=== PATIENT | female | born 1930 | race Caucasian/White ===

== ENCOUNTER 2017-03-16 14:24 | Inpatient (IN) | payer MEDICARE, OTHER ==
--- NOTE | ~2017-03-16 | IDS ---
Interim Discharge Summary [facility] [address] [place]. [address] NAME: SUSAN MAC : 30 STATUS : ADM IN PAT#: [id number] AGE: 87 ADM/REG DATE : 03/16/17 MR#: [id number] REPORT SERV DATE: 03/20/17 DICTATED BY: DATE: REPORT STATUS : Draft TRANSCRIBED BY: MODL DATE: 03/19/17 ADMISSION DATE: 03/16/2017 DISCHARGE DATE: INTERIM DISCHARGE DIAGNOSES: 1. Acute hypoxic respiratory failure, present on arrival. 2. Urinary tract infection due to chronic Clement present on arrival. 3. Advanced Parkinson disease. 4. Diabetes mellitus type 2. 5. Debility. 6. History of cerebrovascular accident in 2013. 7. Aortic sclerosis. CONSULTING PHYSICIANS: None. IMAGIN. Portable chest x-ray demonstrated left basilar atelectasis, consolidation with minimal right basilar atelectasis, trace left pleural fluid. 2. CTA of the chest demonstrated no evidence of pulmonary embolism. For full H and P, please refer to Dr. Prakash Singh's dictation on 03/16/2017. 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 She has had progressive worsening of her Parkinson disease as well as acute onset of confusion last Monday. She has had multiple UTIs and now has a chronic Clement catheter. She was initially admitted thinking that she had acute delirium related to urinary tract infection; however, urine culture only demonstrates colonization with Evelia. Her acute hypoxic respiratory failure has not really improved since admission. Her CTA was negative for pulmonary embolism. Questioning whether the patient has some silent aspiration, I ordered a speech therapy evaluation for swallow study. This has not been performed yet. Considering the patient has a history of a CVA, I am also obtaining an MRI of the brain, which also has not been done. Due to the possibility of aspiration pneumonitis, continuing Zosyn IV; however, the patient passes her swallow evaluation and might be prudent to discontinue the Zosyn considering the patient has been afebrile and only has mild leukocytosis of 11,000. I spoke with the patient's niece today, Ms. Susan Ho, who lives in [place]. Concerning the patient's condition, she reported to me that the patient was a heavy smoker from the age of 14 well into her 70s. She does have a history of COPD, possibly this hypoxic respiratory failure is related to a progression of her COPD and not an acute infection. Diabetes mellitus has been under control; however, this morning, her blood glucose was 43. After talking to the patient and her caregiver, the patient has not been eating very well since admission to the hospital. She is on glyburide. I am going to cut the dose in half, and I encouraged the patient to eat food from outside the hospital if needed. I also spoke to the patient's power of staff attorney concerning her code status. The patient is a DNR/DNI. Hopefully, we will have some answers after the MRI is performed and speech therapy evaluation is completed. Possibly, this is again a progression of the patient's COPD. She may require home oxygen. She may have had another stroke. We will see what the MRI results show. After discharge, Interim Discharge Summary [address] [place]. [address] NAME: SUSAN MAC : 30 STATUS : ADM IN [facility]#: [id number] AGE: 87 ADM/REG DATE : 03/16/17 MR#: [id number] REPORT SERV DATE: 03/20/17 DICTATED BY: DATE: REPORT STATUS : Draft TRANSCRIBED BY: AG DATE: 03/19/17 the patient will return home. She has 24-hour caregivers. She has 7 caregivers that her family has hired to take care of her around the clock. She also has a neighbor, Ms. Carolina Sandoval, who coordinates all of her care here in [place], and she is a contact for updates in the patient's condition. Her number is on the face sheet. JULIUS/SAADIAL Venancio Carmen NP / [id number] CC: MD Prakash Orta M.D.
--- NOTE | ~2017-03-16 | DS ---
Discharge Summary [facility] [address] [place]. [address] NAME: RISHABH MAC : 30 STATUS : DIS IN PAT#: [id number] AGE: 87 ADM/REG DATE : 03/16/17 MR#: [id number] REPORT SERV DATE: 03/24/17 DICTATED BY: KRUNAL DYE DATE: 03/23/17 REPORT STATUS : Draft TRANSCRIBED BY: MODL DATE: 03/23/17 ADMISSION DATE: 03/16/2017 DISCHARGE DATE: 03/23/2017 REASON FOR ADMISSION: This is an 87-year-old female, who came in with hypoxemia in the emergency room. She was found to have an O2 saturation of 80% in room air. They would perform a CTA of the chest, which showed no evidence of pulmonary embolism, however, mild basilar atelectasis was seen as well as findings compatible with COPD. DISCHARGE DIAGNOSES: 1. Hypoxemic respiratory failure secondary to atelectasis and possible aspiration event. 2. Parkinson's. 3. Status post delirium. 4. Diabetes. 5. Status post the yeast urinary tract infection. 6. Dysphagia. HOSPITAL COURSE: Please see admission H and P from Prakash Singh on 03/17/2017 as well as the interim discharge summary from Tristan Carmen on 03/20/2017 for full details on admission and hospital stay. I picked up the patient on 03/21. 1. Hypoxemic respiratory failure. The patient was admitted, placed on oxygen as well as respiratory treatments, EzPAP. She was able to be weaned down on her oxygen to 1 L before discharge. Images did show atelectasis and that resolved over hospital stay, however, there was also a concern for possible aspiration event, so a swallow study was performed, which did show aspiration. Speech Therapy recommended pureed diet with nectar thick liquids and esophageal stimulation treatment at rehab and repeat modified barium swallow study in six to eight weeks. The patient did have delirium on admission as well, that has resolved. The patient was given five days of IV Zosyn during hospital stay to cover for possible aspiration pneumonitis. 2. Parkinson's. The patient was started on Sinemet here at the hospital and her symptoms are improved on Sinemet. 3. During her delirium, there was concern because she had a history of a stroke to go ahead and do an MRI of the brain, which would show moderate to marked general atrophy and a moderate amount of old deep white matter ischemic changes. No acute bleed, infarction, or hydrocephalus suggested. DISCHARGE CONDITION: Stable. DISCHARGE MEDICATIONS: 1. Glyburide 2.5 mg p.o. daily. 2. Azilect 1 mg p.o. daily. 3. Plavix 75 mg p.o. daily. 4. Hiprex 1 g p.o. b.i.d. 5. Colace 100 mg p.o. daily. 6. Pravastatin 20 mg p.o. at bedtime. 7. Sinemet 25/100 mg p.o. one tablet b.i.d. Discharge Summary [address] [address] NAME: RISHABH MAC : 30 STATUS : DIS IN PAT#: [id number] AGE: 87 ADM/REG DATE : 03/16/17 MR#: [id number] REPORT SERV DATE: 03/24/17 DICTATED BY: KRUNAL DYE DATE: 03/23/17 REPORT STATUS : Draft TRANSCRIBED BY: AG DATE: 03/23/17 8. Mirapex 4.5 mg p.o. at bedtime. 9. Nebivolol 2.5 mg p.o. daily. DISCHARGE PLAN: The patient is discharged to retirement rehab and follow up with primary care after rehab. JOCE/AG Krunal Dye APN / [phone] CC: Christal Johnson M.D.
--- NOTE | ~2017-03-16 | IDS ---
Interim Discharge Summary [facility] [address] [place]. [address] NAME: RISHABH MAC : 30 STATUS : ADM IN [facility]#: [id number] AGE: 87 ADM/REG DATE : 03/16/17 MR#: [id number] REPORT SERV DATE: 03/19/17 DICTATED BY: DATE: REPORT STATUS : Draft TRANSCRIBED BY: MODL DATE: 03/19/17 ADMISSION DATE: 03/16/2017 DISCHARGE DATE: INTERIM DISCHARGE DIAGNOSES: 1. Acute hypoxic respiratory failure, present on arrival. 2. Urinary tract infection due to chronic Clement present on arrival. 3. Advanced Parkinson disease. 4. Diabetes mellitus type 2. 5. Debility. 6. History of cerebrovascular accident in 2013. 7. Aortic sclerosis. CONSULTING PHYSICIANS: None. DICTATION ENDS HERE JULIUS/AG Venancio Carmen NP / [id number] CC: MD Prakash Orta M.D.
--- NOTE | ~2017-03-16 | HP ---
History And Physical [place] [id number] [place]. [address] NAME: RISHABH MAC : 30 STATUS : ADM IN [facility]#: [id number] AGE: 87 ADM/REG DATE : 03/16/17 MR#: [id number] REPORT SERV DATE: 03/17/17 DICTATED BY: NISHANT FISHMAN DATE: 03/16/17 REPORT STATUS : Draft TRANSCRIBED BY: MODBennie DATE: 03/16/17 DATE OF ADMISSION: 03/16/2017 REASON FOR ADMISSION: Hypoxemia. 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 She has caretakers around her. She has no living children or siblings except in [place]. The power of maintenance mechanic elevators lives there. The patient says that she has just gotten weaker. This is confirmed by her caregivers and next door neighbor, who agreed that she has had trouble walking, and it is difficult now to get out to her appointments. She has longstanding history of Parkinson disease, and she is followed by Dr. Krystina Novoa. She also sees Dr. Nishant Ha as her primary care physician. She has had frequent urinary tract infections, and Dr. Ha referred her to Dr. Emigdio Ferrara, who has placed a Clement catheter in the last six weeks. The observer states she has worsened since that time. She does have a large amount of pyuria. She was on suppressive Keflex and hippuric acid at home. She denies any fever or chills, though with this pyuria we are suspicious this may be urinary tract infection aggravating the Parkinson disease, causing increasing weakness and immobility. Incidentally in the emergency room, she was found to have an oxygen saturation of 80% on arrival. CTA of the chest showed no evidence of pulmonary embolism. However, mild basilar atelectasis left greater than right and upper lobe lucency compatible with COPD. She has a severe T4 compression fracture on the back likely due with retropulsion posteriorly causing mild canal stenosis and a chronic L1 fracture as well. [employer]airer states she is saddened because her best friend Teri Madrid the former publisher of the [employer] yesterday and she is mourning that as well. PAST MEDICAL HISTORY: She has had some dehydration, type 2 diabetes, recently blood sugar being elevated and hyperlipidemia. SOCIAL HISTORY: She quit smoking cigarettes about 19 years ago. She does not take any current alcohol. She has 24/7 caregivers and has had progressive Parkinson disease and the urinary retention likely secondary to the Parkinson disease as well. She does not take any alcohol. She never . She is related to football coaches as well probably at [employer] or [employer]. 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 She did not belong to the [employer] which was the cheondoism sponsoring [facility] and says she is not much of a cheondoism goer now. ALLERGIES: SULFA AND MULTIPLE POLLEN ALLERGIES. FAMILY HISTORY: She has a sister who is alive and well and a niece who actually is the power of-maintenance mechanic elevators for her but she is not able to describe any health problems associated with them History And Physical [address] [place]. [address] NAME: RISHABH MAC : 30 STATUS : ADM IN [facility]#: [id number] AGE: 87 ADM/REG DATE : 03/16/17 MR#: [id number] REPORT SERV DATE: 03/17/17 DICTATED BY: NISHANT FISHMAN DATE: 03/16/17 REPORT STATUS : Draft TRANSCRIBED BY: AG DATE: 03/16/17 in the past. REVIEW OF SYSTEMS: She denies chest pain. She denies shortness of breath. She denies coughing, has no obstructive sleep apnea. No swelling of lower extremities. She did have infiltration of the IV in her right arm at the time the contrast given for CTA and now has swelling of that arm but she has had no nausea, vomiting, no melena, hematemesis, fits, seizures, convulsions. She has just lost her strength and is very weak now. The remainder of review of systems is negative. PHYSICAL EXAMINATION: VITAL SIGNS: Her blood pressure was 119/45 with a heart rate of 74, respiratory rate 20, oxygen saturation initially 85% with arterial blood gas having been obtained at room air showing 7.49, 37, and 49 on room air. HEENT: EOMI. Sclerae clear. Conjunctivae pink. She has periorbital swelling. Pharynx is clear. Tongue midline and well papillated. NECK: No bruit without any JVD. CHEST: Clear to A and P. HEART: Regular S1, S2 without murmur, gallop, or click. BREASTS: Grossly without mass. ABDOMEN: Soft, nontender. Bowel sounds positive. EXTREMITIES: She has no edema. Distal pulses are palpable at dorsalis pedis and posterior tibial. NEUROLOGIC: She does have DTRs of the knees bilaterally. Not in the ankles. Sensory is grossly intact. She is able to move her hand. She has some stiffness in her hands. Tone is not increased. She does not have any cogwheel rigidity. Rapid alternating movements are very slowed. She does have bradykinesia and evidence of lethargy. LYMPHATICS: There is no adenopathy palpable. BREASTS: Without mass. SKIN: Multiple ecchymoses and large infusion of the right antecubital fossa at the site of the IV contrast infusion or infiltration. LABORATORY DATA: The arterial blood gas is as cited above. CTA as above. Portable chest x-ray shows left basilar atelectasis and consolidation with minimal right basilar atelectasis and left pleural effusion may be present. BNP was 134, her white count was 9.4, hemoglobin 11.4, hematocrit 35.7, platelets were 243,000, and her INR was 1.1. The chest pain profile showed troponin of 0.02, creatinine of 0.78, BUN 14, sodium 142, potassium 3.8. Glucose was 119. Magnesium 2.0. Urinalysis showed greater than 182 red cells, greater than 182 white cells, many white cell clumping, yeast budding, occasional bacteria, moderate mucus, moderate leukocyte esterase, and positive nitrite, pH was 5 with specific gravity 1.020 and protein 100 mg%. ASSESSMENT: History And Physical [address] [place]. [address] NAME: RISHABH MAC : 30 STATUS : ADM IN [facility]#: [id number] AGE: 87 ADM/REG DATE : 03/16/17 MR#: [id number] REPORT SERV DATE: 03/17/17 DICTATED BY: NISHANT FISHMAN DATE: 03/16/17 REPORT STATUS : Draft TRANSCRIBED BY: MODBennie DATE: 03/16/17 1. Hypoxemia. Chest x-ray shows atelectasis, I wonder about some hypoventilation. We will add EZPAP. Her oxygen saturation at home last week was 93%. 2. Chronic indwelling Clement catheter last six weeks, likely secondary to parkinsonian bladder with lack of emptying and urinary retention. 3. Urinary tract infection has been frequent throughout the past. Multiple other medications have been used. We will start with Zosyn and adjust from there. 4. Parkinson disease, rather advance probably made worse by urinary tract infection. 5. Diabetes type 2 with blood sugar being elevated. It is suspicious for urinary tract infection exacerbating this. 6. History of Plavix for stroke about two years ago. 7. Mobility worsening likely secondary to the urinary tract infection and Parkinson disease. She has been getting physical therapy twice a week without much improvement over the last six weeks. 8. 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 PLAN: To treat the urinary tract infection, get physical therapy to watch, EZPAP to help with the hypoxemia. I have discussed end of life issues with the patient in the event of cardiac arrest. She does not wish to be resuscitated, and we therefore entered DNR order for her. PETEY/AG Nishant Fishman M.D. / [id number] CC: Christal Garces M.D.
[2017-03-16 10:56] LABS: ALLENS TEST Pos; BE (BASE EXCESS) 3.9 MEQ/L (0 +/- 2.5); CARBOXYHEMOGLOBIN 3.7 % (0-3); HCO3 (ACTUAL BICARBONATE) 27.4 MEQ/L (23-27); HEMOBLOGIN CONTENT 11.2 G/DL (12-16); INSTRUMENT SERIAL # 8087; METHEMOGLOBIN 0.2 % (0-3); O2 CONTENT 12.8 VOL% (18-24); PCO2 (CO2 TENSION) 37 MMHG (35-45); PO2 (O2 TENSION) 49 MMHG (79-93); SAMPLE Arterial; pH 7.49 (7.37-7.43)
[2017-03-16 11:36] LABS: BASOPHILS 0.3 %; BASOPHILS ABSOLUTE 0.03 10/3/uL (0.0-0.16); EOSINOPHILS 2.5 %; EOSINOPHILS ABSOLUTE 0.23 10/3/uL (0.0-0.53); ER CBC TAT 0 Hrs 07 Mins; HEMOGLOBIN 11.4 g/dL (12.0-16.0); IMMATURE GRANULOCYTES 0.3 %; IMMATURE GRANULOCYTES ABSOLUTE 0.03 10/3/uL (0.0-0.11); LYMPHOCYTES 12.6 %; LYMPHOCYTES ABSOLUTE 1.15 10/3/uL (0.67-4.30); MEAN CORPUS HGB CONC 31.9 g/dL (32.0-36.0); MEAN CORPUSCULAR HEMOGLOB 28.6 pg (26.0-34.0); MEAN CORPUSCULAR VOLUME 89.5 fL (80-100); MEAN PLATELET VOLUME 9.6 fL (9.2-13.0); MONOCYTES 6.8 %; MONOCYTES ABSOLUTE 0.62 10/3/uL (0.21-1.20); NEUTROPHILS 77.5 %; NEUTROPHILS ABSOLUTE 7.09 10/3/uL (2.02-8.40); PLATELET COUNT 243 10/3/uL (150-400); RED CELL COUNT 3.99 10/6/uL (4.0-5.6); WHITE BLOOD CELLS 9.2 10/3/uL (4.5-10.5)
[2017-03-16 11:37] LABS: HEMATOCRIT 35.7 % (36.0-48.0)
[2017-03-16 11:46] LABS: INTERNATIONAL NORMAL RATI 1.1 UNITS (-); PARTIAL THROMBO TIME 27.4 SEC (22.5-37.2)
[2017-03-16 11:51] LABS: ASCORBIC ACID (UR NOT ORDER) NEG (NEG); BILIRUBIN, URINE NEGATIVE (NEG); ER URINALYSIS TAT 0 Hrs 09 Mins; KETONE, URINE TRACE MG/DL (NEG); LEUKOCYTE ESTERASE(NOT OR MOD (NEG); NITRITE (URINE) POS (NEG); WBC (NOT ORDERED) (RFLEX) > 182 (0-5)
[2017-03-16 11:54] LABS: BUN (BLOOD UREA NITROGEN) 14 MG/DL (6-23); CALCIUM, SERUM 8.9 MG/DL (8.5-10.4); CHEST PAIN PROFILE TAT 0 Hrs 25 Mins; CHLORIDE, SERUM 105 MMOL/L (96-112); CO2 (CARBON DIOXIDE) 32 MMOL/L (24-34); CREATININE 0.78 MG/DL (0.55-1.02); GFR AFRICAN AMERICAN 79 ML/MIN (>=60); GFR NON AFRICAN AMERICAN 68 ML/MIN (>=60); GLUCOSE, SERUM 119 MG/DL (60-99); POTASSIUM, SERUM 3.8 MMOL/L (3.5-5.3); SODIUM, SERUM 142 MMOL/L (135-148); TROPONIN I 0.02 NG/ML (<0.05)
[~2017-03-16 14:24] MED LIST: ACET500CAP PO; ASAB PO; ATEN50 PO; AZILECT1 MG PO; DIABET2.5 PO; DSS PO; FLONASE NAS; HALF81 PO; HIPREX1 GM PO; K250 PO; LEVAQUIN750 MG PO; MIRAPEX ER3 MG PO; MIRAPEX ER4.5 MG PO; MIRAPEX1.5 MG PO; NITROFURANTOIN PO; PLAVIX PO; PRAVAC PO; STERAPRED DS10 MG; VIB50 PO; [UNRECOGNIZED DRUG - OTHER] PO
[2017-03-17 06:42] LABS: BASOPHILS 0.4 %; BASOPHILS ABSOLUTE 0.03 10/3/uL (0.0-0.16); EOSINOPHILS 3.2 %; EOSINOPHILS ABSOLUTE 0.27 10/3/uL (0.0-0.53); HEMOGLOBIN 10.1 g/dL (12.0-16.0); IMMATURE GRANULOCYTES 0.2 %; IMMATURE GRANULOCYTES ABSOLUTE 0.02 10/3/uL (0.0-0.11); LYMPHOCYTES 13.7 %; LYMPHOCYTES ABSOLUTE 1.16 10/3/uL (0.67-4.30); MEAN CORPUS HGB CONC 31.8 g/dL (32.0-36.0); MEAN CORPUSCULAR HEMOGLOB 28.3 pg (26.0-34.0); MEAN CORPUSCULAR VOLUME 89.1 fL (80-100); MEAN PLATELET VOLUME 8.9 fL (9.2-13.0); MONOCYTES 6.8 %; MONOCYTES ABSOLUTE 0.58 10/3/uL (0.21-1.20); NEUTROPHILS 75.7 %; NEUTROPHILS ABSOLUTE 6.41 10/3/uL (2.02-8.40); PLATELET COUNT 210 10/3/uL (150-400); RBC DISTRIBUTION WIDTH 15.1 % (12.0-16.0); RED CELL COUNT 3.57 10/6/uL (4.0-5.6); WHITE BLOOD CELLS 8.5 10/3/uL (4.5-10.5)
[2017-03-17 06:45] LABS: HEMATOCRIT 31.8 % (36.0-48.0); MANUAL DIFF NO %
[2017-03-17 06:58] LABS: BUN (BLOOD UREA NITROGEN) 14 MG/DL (6-23); CALCIUM, SERUM 8.1 MG/DL (8.5-10.4); CHLORIDE, SERUM 109 MMOL/L (96-112); CREATININE 0.76 MG/DL (0.55-1.02); GFR AFRICAN AMERICAN 82 ML/MIN (>=60); GFR NON AFRICAN AMERICAN 71 ML/MIN (>=60); POTASSIUM, SERUM 3.3 MMOL/L (3.5-5.3); SODIUM, SERUM 143 MMOL/L (135-148)
[2017-03-17 06:59] LABS: CO2 (CARBON DIOXIDE) 25 MMOL/L (24-34); GLUCOSE, SERUM 160 MG/DL (60-99)
[2017-03-18 04:32] LABS: BASOPHILS 0.1 %; BASOPHILS ABSOLUTE 0.02 10/3/uL (0.0-0.16); EOSINOPHILS 1.1 %; EOSINOPHILS ABSOLUTE 0.16 10/3/uL (0.0-0.53); HEMATOCRIT 30.5 % (36.0-48.0); HEMOGLOBIN 9.7 g/dL (12.0-16.0); IMMATURE GRANULOCYTES 0.4 %; IMMATURE GRANULOCYTES ABSOLUTE 0.05 10/3/uL (0.0-0.11); LYMPHOCYTES 7.5 %; LYMPHOCYTES ABSOLUTE 1.05 10/3/uL (0.67-4.30); MEAN CORPUS HGB CONC 31.8 g/dL (32.0-36.0); MEAN CORPUSCULAR HEMOGLOB 28.8 pg (26.0-34.0); MEAN CORPUSCULAR VOLUME 90.5 fL (80-100); MONOCYTES 4.6 %; MONOCYTES ABSOLUTE 0.64 10/3/uL (0.21-1.20); NEUTROPHILS 86.3 %; NEUTROPHILS ABSOLUTE 12.06 10/3/uL (2.02-8.40); PLATELET COUNT 209 10/3/uL (150-400); RBC DISTRIBUTION WIDTH 15.2 % (12.0-16.0); RED CELL COUNT 3.37 10/6/uL (4.0-5.6)
[2017-03-18 04:33] LABS: MANUAL DIFF NO %
[2017-03-18 04:52] LABS: BUN (BLOOD UREA NITROGEN) 9 MG/DL (6-23); CHLORIDE, SERUM 112 MMOL/L (96-112); CO2 (CARBON DIOXIDE) 28 MMOL/L (24-34); GFR AFRICAN AMERICAN 90 ML/MIN (>=60); GFR NON AFRICAN AMERICAN 78 ML/MIN (>=60); GLUCOSE, SERUM 86 MG/DL (60-99); POTASSIUM, SERUM 3.5 MMOL/L (3.5-5.3); SODIUM, SERUM 145 MMOL/L (135-148)
[2017-03-19 06:49] LABS: BASOPHILS 0.2 %; BASOPHILS ABSOLUTE 0.02 10/3/uL (0.0-0.16); EOSINOPHILS 1.9 %; EOSINOPHILS ABSOLUTE 0.21 10/3/uL (0.0-0.53); HEMATOCRIT 29.7 % (36.0-48.0); HEMOGLOBIN 9.4 g/dL (12.0-16.0); IMMATURE GRANULOCYTES 0.4 %; IMMATURE GRANULOCYTES ABSOLUTE 0.04 10/3/uL (0.0-0.11); LYMPHOCYTES 11.3 %; LYMPHOCYTES ABSOLUTE 1.25 10/3/uL (0.67-4.30); MEAN CORPUS HGB CONC 31.6 g/dL (32.0-36.0); MEAN CORPUSCULAR HEMOGLOB 28.5 pg (26.0-34.0); MONOCYTES 6.6 %; MONOCYTES ABSOLUTE 0.73 10/3/uL (0.21-1.20); NEUTROPHILS 79.6 %; NEUTROPHILS ABSOLUTE 8.77 10/3/uL (2.02-8.40); PLATELET COUNT 232 10/3/uL (150-400); RBC DISTRIBUTION WIDTH 15.3 % (12.0-16.0)
[2017-03-19 06:50] LABS: MANUAL DIFF NO %
[2017-03-19 07:07] LABS: ALKALINE PHOSPHATASE 154 U/L (45-117); BUN (BLOOD UREA NITROGEN) 7 MG/DL (6-23); CALCIUM, SERUM 7.9 MG/DL (8.5-10.4); CHLORIDE, SERUM 112 MMOL/L (96-112); CO2 (CARBON DIOXIDE) 26 MMOL/L (24-34); CREATININE 0.58 MG/DL (0.55-1.02); GFR AFRICAN AMERICAN 96 ML/MIN (>=60); GFR NON AFRICAN AMERICAN 83 ML/MIN (>=60); PHOSPHORUS, SERUM 2.1 MG/DL (2.5-4.5); POTASSIUM, SERUM 3.4 MMOL/L (3.5-5.3); PREALBUMIN 8.1 MG/DL (17.0-43.0); SGOT(AST) 16 U/L (5-40); SGPT(ALT) 12 U/L (5-65); SODIUM, SERUM 144 MMOL/L (135-148); TOTAL BILIRUBIN 0.5 MG/DL (0-1.2)
[2017-03-19 07:10] LABS: A/G RATIO 0.6 (0.7-1.9); GLOBULIN 3.5 G/DL (2.5-4.1); GLUCOSE, SERUM 43 MG/DL (60-99); TOTAL PROTEIN 5.5 G/DL (6.0-8.5)
[2017-03-19 09:12] LABS: PROCALCITONIN 0.12 ng/mL (<0.5)
[2017-03-20 06:56] LABS: BASOPHILS 0.3 %; BASOPHILS ABSOLUTE 0.02 10/3/uL (0.0-0.16); EOSINOPHILS 3.9 %; EOSINOPHILS ABSOLUTE 0.27 10/3/uL (0.0-0.53); HEMATOCRIT 31.1 % (36.0-48.0); HEMOGLOBIN 9.9 g/dL (12.0-16.0); IMMATURE GRANULOCYTES 0.4 %; IMMATURE GRANULOCYTES ABSOLUTE 0.03 10/3/uL (0.0-0.11); LYMPHOCYTES 11.2 %; LYMPHOCYTES ABSOLUTE 0.77 10/3/uL (0.67-4.30); MEAN CORPUS HGB CONC 31.8 g/dL (32.0-36.0); MEAN CORPUSCULAR HEMOGLOB 28.5 pg (26.0-34.0); MEAN CORPUSCULAR VOLUME 89.6 fL (80-100); MEAN PLATELET VOLUME 8.7 fL (9.2-13.0); MONOCYTES 7.7 %; MONOCYTES ABSOLUTE 0.53 10/3/uL (0.21-1.20); NEUTROPHILS 76.5 %; NEUTROPHILS ABSOLUTE 5.26 10/3/uL (2.02-8.40); PLATELET COUNT 206 10/3/uL (150-400); RBC DISTRIBUTION WIDTH 15.1 % (12.0-16.0); RED CELL COUNT 3.47 10/6/uL (4.0-5.6); WHITE BLOOD CELLS 6.9 10/3/uL (4.5-10.5)
[2017-03-20 06:59] LABS: MANUAL DIFF NO %
[2017-03-20 07:10] LABS: BUN (BLOOD UREA NITROGEN) 4 MG/DL (6-23); CALCIUM, SERUM 8.5 MG/DL (8.5-10.4); CHLORIDE, SERUM 106 MMOL/L (96-112); CO2 (CARBON DIOXIDE) 30 MMOL/L (24-34); CREATININE 0.53 MG/DL (0.55-1.02); GFR AFRICAN AMERICAN 99 ML/MIN (>=60); GFR NON AFRICAN AMERICAN 85 ML/MIN (>=60); PHOSPHORUS, SERUM 2.5 MG/DL (2.5-4.5); POTASSIUM, SERUM 3.8 MMOL/L (3.5-5.3); SODIUM, SERUM 141 MMOL/L (135-148)
[2017-03-20 07:11] LABS: GLUCOSE, SERUM 149 MG/DL (60-99)
[2017-03-21 06:36] LABS: BASOPHILS 0.2 %; BASOPHILS ABSOLUTE 0.01 10/3/uL (0.0-0.16); EOSINOPHILS 3.8 %; EOSINOPHILS ABSOLUTE 0.25 10/3/uL (0.0-0.53); HEMATOCRIT 31.5 % (36.0-48.0); IMMATURE GRANULOCYTES 0.5 %; IMMATURE GRANULOCYTES ABSOLUTE 0.03 10/3/uL (0.0-0.11); LYMPHOCYTES 23.5 %; LYMPHOCYTES ABSOLUTE 1.55 10/3/uL (0.67-4.30); MEAN CORPUS HGB CONC 31.7 g/dL (32.0-36.0); MEAN CORPUSCULAR HEMOGLOB 28.3 pg (26.0-34.0); MEAN CORPUSCULAR VOLUME 89.2 fL (80-100); MEAN PLATELET VOLUME 9.2 fL (9.2-13.0); MONOCYTES 8.8 %; MONOCYTES ABSOLUTE 0.58 10/3/uL (0.21-1.20); NEUTROPHILS 63.2 %; NEUTROPHILS ABSOLUTE 4.18 10/3/uL (2.02-8.40); PLATELET COUNT 262 10/3/uL (150-400); RBC DISTRIBUTION WIDTH 14.8 % (12.0-16.0); RED CELL COUNT 3.53 10/6/uL (4.0-5.6); WHITE BLOOD CELLS 6.6 10/3/uL (4.5-10.5)
[2017-03-21 06:43] LABS: MANUAL DIFF NO %
== END 2017-03-23 13:55 | disposition home or self-care (01) | DRG 698 ==
LOC: ER 14:24 → 4SO 16:45
PROVIDERS: Emergency Medicine; Internal Medicine; Nurse Practitioner Acute Care
DX: T83.511A Infection and inflammatory reaction due to indwelling urethral catheter, initial encounter (principal); J96.01 Acute respiratory failure with hypoxia; J69.0 Pneumonitis due to inhalation of food and vomit; G20 Parkinson's disease; F05 Delirium due to known physiological condition; J98.11 Atelectasis; B37.49 Other urogenital candidiasis; Y83.8 Other surgical procedures as the cause of abnormal reaction of the patient, or of later complication, without mention of misadventure at the time of the procedure; E11.9 Type 2 diabetes mellitus without complications; E78.5 Hyperlipidemia, unspecified; I70.0 Atherosclerosis of aorta; Z87.891 Personal history of nicotine dependence; Z86.73 Personal history of transient ischemic attack (TIA), and cerebral infarction without residual deficits; Z88.2 Allergy status to sulfonamides; J44.9 Chronic obstructive pulmonary disease, unspecified; R33.8 Other retention of urine; J30.1 Allergic rhinitis due to pollen; Z66 Do not resuscitate
CPT/HCPCS: 36600; 70551; 71010; 71275; 74230; 80048; 80053; 81001; 82805; 82947; 82962; 83735; 83880; 84100; 84134; 84145; 84484; 85025; 85610; 85730; 87086; 92610-GN; 92611-GN; 93005; 94640; 96374; 97110-GP; 97162-GP; 97530-GP; 99291; A9270-GY; G8978-CL-GP; G8979-CK-GP; G8996-CJ-GN; G8996-CK-GN; G8997-CJ-GN; G8997-CK-GN; G8998-CJ-GN; G8998-CK-GN; J2543; J3475; Q9967